=== PATIENT | female | born 1990 | race Caucasian/White ===

== ENCOUNTER 2020-08-24 01:33 | Outpatient (CLI) | payer OTHER, SELFPAY ==
[2020-08-24 19:31] LABS: SARS-CoV-2 RNA PCR Negative
== END 2020-08-24 01:34 | disposition home or self-care (01) ==
LOC: ANHCOVIDDT 01:34
PROVIDERS: PCP Family Medicine; Visit Provider Obstetrics & Gynecology
DX: Z01.818 Encounter for other preprocedural examination (principal); Z20.828 Contact with and (suspected) exposure to other viral communicable diseases
CPT/HCPCS: 87635; C9803; U0003

== ENCOUNTER 2020-08-26 00:47 | Day surgery (SDC) | payer OTHER, SELFPAY ==
[2020-08-19 10:25] VITALS: BMI 22.8
--- NOTE | 2020-08-25 21:53 | PM.IMHP ---
H&P: HPI History of Present Illness Date/Time: 08/25/20 21:53 Chief Complaint: CIN2 Narrative: Veronica Lopez is a 29 year old female G0 with pap with ASCUS postive HR HPV. 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 She was recommended for LEEP. She was informed of risk of procedure and risk of continued surveillance of CIN2 on endocervix. Her questions were answered. She agrees to LEEP. Review of Systems Review of Systems: All systems reviewed & are unremarkable except as noted in HPI and below Cardiovascular: Cardiovascular: Reports no additional cardiovascular complaints, Denies chest pain and Denies dyspnea Respiratory: Respiratory: Reports no additional respiratory complaints and Denies dyspnea Gastrointestinal: Gastrointestinal: Reports abdominal pain, Denies change in bowel habits, Denies diarrhea, Denies nausea and Denies vomiting Genitourinary: Genitourinary: Reports pelvic pain Musculoskeletal: Musculoskeletal: Reports back pain Integumentary/Breasts: Skin/Breast: Reports system reviewed and no additional complaints, except as docu Neurologic: Reports system reviewed and no additional complaints, except as documented [facility] Past Medical History Medical History (Updated 08/26/20 @ 07:05 by Jack Shaw DO) HARJINDER II (cervical intraepithelial neoplasia II) Surgical History Surgical History (Updated 08/26/20 @ 07:05 by Jack Shaw DO) History of oral surgery Family History Family History Grandparent Hypertension Family history of dementia Diabetes mellitus Father Asthma Hypertension Sibling Asthma Mother Hypertension Other Breast cancer Other Family history of malignant neoplasm Social History Social History Smoking status: Never smoker Second hand tobacco smoke exposure: No Alcohol intake: current Drinks per week: 1 Living arrangements: alone Spiritual care concerns: No Meds Home Medications and Allergies Home Medications Medication Instructions Recorded Confirmed Type cetirizine 10 mg tablet 10 mg PO DAILY 07/02/20 08/26/20 History multivitamin 1 tablet PO DAILY 07/02/20 08/26/20 History norethindrone 1 mg-ethinyl 1 tablet PO DAILY #84 tablet 07/02/20 08/26/20 Rx estradiol 20 mcg (24)-iron 75 mg (4) tablet Allergies Allergy/AdvReac Type Severity Reaction Status Date / Time No Known Allergies Allergy Verified 08/26/20 06:33 Exam Const: Orientation/consciousness: oriented to person and oriented to place HENMT: Head: normal to inspection Eyes: General: appearance normal, both eyes and all related structures Resp: Effort & Inspection: normal respiratory effort Auscultation: clear to auscultation bilaterally Cardio: Rate: regular rate Rhythm: regular rhythm GI: Inspection: normal to inspection GI Palp: No Rebound tenderness present : External Female Exam: normal external appearance Speculum Exam - Vagina: normal appearance of the vagina Speculum Exam - Cervix: normal appearance of the cervix Bimanual exam- vagina & uterus: normal bimanual exam, uterine size normal, consistency normal and non-tender Bimanual Exam- Adnexa, other: normal adnexae and No adnexal tenderness Neuro: General: oriented to person and oriented to place Cognition (Neuro): normal cognition Extrem: General: normal to inspection Psych: Appearance: grossly normal and well kempt Assessment and Plan Assessment and plan (1) HARJINDER II (cervical intraepithelial neoplasia II): Code(s): N87.1 - Moderate cervical dysplasia Status: Acute Assessment and Plan: Positive CIN2 at endocervix. Will proceed with LEEP.
[2020-08-26] MEDS: ACETAMINOPHEN 500 MG TABLET 1000 MG PO (06:36)
--- NOTE | 2020-08-26 07:05 | P.PNAN_ITS ---
Anes - Initial Pre Proc Eval Procedure: Operation Date: 08/26/20 08:15 Proposed Procedures p Loop Electrical Excision Procedure - Chandana Pimentel MD Date/Time: 08/26/20 07:05 Surgeon: Chandana Pimentel MD Pre Op Diagnosis: HARJINDER II Patient Data Age: 29 Gender: F Height: 1.57 m Weight: 56.7 kg Allergies Allergy/AdvReac Type Severity Reaction Status Date / Time No Known Allergies Allergy Verified 08/26/20 06:33 Home Medications Medication Instructions Recorded Confirmed Type cetirizine 10 mg tablet 10 mg PO DAILY 07/02/20 08/26/20 History multivitamin 1 tablet PO DAILY 07/02/20 08/26/20 History norethindrone 1 mg-ethinyl 1 tablet PO DAILY #84 tablet 07/02/20 08/26/20 Rx estradiol 20 mcg (24)-iron 75 mg (4) tablet Patient hx anesthesia problems: none Family hx anesthesia problems: none [facility] Past Medical History Medical History (Updated 08/26/20 @ 07:05 by Jack Shaw DO) HARJINDER II (cervical intraepithelial neoplasia II) Surgical History Surgical History (Updated 08/26/20 @ 07:05 by Jack Shaw DO) History of oral surgery Family History Family History Grandparent Hypertension Family history of dementia Diabetes mellitus Father Asthma Hypertension Sibling Asthma Mother Hypertension Other Breast cancer Other Family history of malignant neoplasm Social History Social History Smoking status: Never smoker Second hand tobacco smoke exposure: No Alcohol intake: current Drinks per week: 1 Living arrangements: alone Spiritual care concerns: No Anes - Eval Final PreProcedure Day of Procedure 08/26/20 07:05 Patient weight: normal Heart: regular rate and rhythm Lungs: clear to auscultation and normal air movement Airway: Mallampati scale class 1 Neurological: alert and oriented Last oral intake: >/= 8 hours ASA classification: II Emergent: no Anesthetic plan: proceed Anesthesia type and monitoring: general GIVS and standard monitoring Informed Consent: The patient's anesthetic plan and its attendant risks and benefits were discussed with the patient/family/POA. Questions were solicited and answers provided to the satisfaction of the patient/family/POA.
[2020-08-26 07:07] VITALS: BMI 22.1
[2020-08-26 07:09] VITALS: BP 125/95; PULSE 127; RESP 18; TEMP 36.4; O2SAT 100
--- NOTE | 2020-08-26 07:32 | WPDHPUPDATE1 ---
History and Physical Update Update Date/Time: 08/26/20 07:32 History and Physical has been reviewed, including an updated exam of the patient. There are NO changes in the patient's condition. Risks, benefits, and alternatives have been discussed and questions answered. Patient agrees to proceed with procedure.
[2020-08-26] MEDS: LACTATED RINGERS 1,000 ML 30 ML IV CONT (07:33)
[2020-08-26] MEDS: ceFAZolin 2 GM/D5W 50 ML 2 GM/50 ML BAG IVPB (08:13)
[2020-08-26] MEDS: LIDO 1%/EPINEPHRINE 1:100,000 50 ML VIAL 10 ML INFILTRATE (08:24)
[2020-08-26] MEDS: KETOROLAC 30 MG/ML VIAL (*BKC) IV PUSH (08:27)
[2020-08-26 08:33] VITALS: BP 104/58; PULSE 109; RESP 16; O2SAT 99
--- NOTE | 2020-08-26 08:34 | PM.PROC ---
Procedure Note - Detailed Date of procedure: 08/26/20 Pre-op diagnosis: HARJINDER II Post-op diagnosis: same Procedure performed: Loop electrosurgical excision procedure Description of procedure: After informed consent was obtained, patient was taken to OR. IV sedation was administered. She was placed in high lithotomy position. Speculum inserted. Single tooth tenaculum placed on anterior cervix. Lugols solution placed on cervix. 10cc of 1% lidocaine was injected at cervix. The hypopigmented area of transformation zone was enclosed in ectocervical pass. Endocervical pass was performed. Hemostasis obtained with cautery and Monsel's solution. Patient tolerated procedure well. Sponge count correct. Anesthesia: MAC and local Surgeon: Chandana Pimentel MD Estimated blood loss (mL): 5 Drains: No Packing: No Pathology: yes (1. LEEP ectocervix 2. LEEP endocervix) Complications: No immediate complications Condition: stable Disposition: PACU Findings: Hypopigmentation at TZ zone enclosed with ectocervix pass.
[2020-08-26 09:00] VITALS: BP 121/77; PULSE 98; RESP 16
== END 2020-08-26 09:19 | disposition home or self-care (01) ==
PROVIDERS: PCP Family Medicine; Visit Provider Obstetrics & Gynecology
PROC: 0UBC7ZZ Excision of Cervix, Via Natural or Artificial Opening (ICD-10-PCS; CPT 57522; principal; 2020-08-26 08:15)
DX: N87.1 Moderate cervical dysplasia (principal)
CPT/HCPCS: 57522; 88305; A9270; J0690; J1885; J2250; J2405; J2704; J3010; J7120